=== PATIENT | male | born 1955 | race Caucasian/White ===

== ENCOUNTER 2017-09-22 21:09 | Emergency (ER) | payer BC, OTHER ==
[~2017-09-22] VITALS: Ht 162.6 cm; Wt 57.5 kg
[~2017-09-22 21:09] MED LIST: AMT10 PO; ASPI-319 PO; LISI5TAB3 PO; PRLSR20 PO; SILD100T PO
[2017-09-22 21:13] VITALS: TEMP 37; Ht 162.6 cm; Wt 57.5 kg
[2017-09-22] MEDS ORDERED: AMIT10TA6 PO (21:45)
[2017-09-22] MEDS ORDERED: LISI-729 PO (21:46)
[2017-09-22] MEDS ORDERED: FINA5TAB PO (21:48)
[2017-09-22] MEDS ORDERED: LIDOCAINE 1% BUFFERED INJ 20 ML VIAL ONE (21:59)
[2017-09-22] MEDS ORDERED: AMOXICIL/CLAVU 875MG HOME PACK PO ONE (22:15)
[2017-09-22] MEDS ORDERED: AMOX875T PO (22:20)
[2017-09-22 22:43] VITALS: BP 129/82; PULSE 76; O2SAT 97
--- NOTE | 2017-09-22 23:36 | EMERGENCY ROOM VISIT NOTE ---
ED Visit Note First contact with patient: 21:50 CHIEF COMPLAINT: [place] to finger HISTORY OF PRESENT ILLNESS: This 62-year-old patient presents to the emergency department with complaining of fishhook to right third finger he was unable to remove it that happened just prior to arrival. The bleeding has stopped. Denies weakness or numbness of the finger. The patient has full range of motion of the fingers. The patient rates the pain as mild and 2/10. The patient denies any other injuries. The patient's tetanus shot is up to date. REVIEW OF SYSTEMS: A 6 system review of systems was completed with positives and pertinent negatives listed in the HPI. ALLERGIES: Hydrocodone MEDICATIONS: Reviewed PMH: Hypertension, hyperlipidemia SOCIAL HISTORY: No drug use PHYSICAL EXAM: Vital Signs: Reviewed Nurse's notes, vital signs stable. GENERAL : Pleasant male, in no acute distress, well developed, well nourished. SKIN: There is a fishhook to the right third finger to the finger pad. There is minimal bleeding. No deep structures such as tendons, bones, or significant blood vessels are seen in the base of the wound. Extension and flexion of the finger is full and strong. Full range of motion of the wrist and other fingers. Capillary refill less than 2 seconds. Normal sensation to light and sharp touch. EMERGENCY DEPARTMENT COURSE: I examined the patient. Using sterile technique the wound was cleansed with Betadine. 2 ml of 1% buffered lidocaine was used to perform a digital block to anesthetize the patient. The area was sterilely draped. Once the patient was anesthetized, pliers were used to cut the fishhook and the fishhook was pushed forward and removed without difficulties. The wound was then irrigated. No deep structures were visualized in the base of the wound. The patient tolerated the procedure well. Hemostasis was achieved. The area was cleaned with sterile saline and dressed with bacitracin ointment and bandage. The patient was started on antibiotics. The patient was given back to the patient per his request. Patient was counseled on signs and symptoms of infection. The patient was discharged home in good condition. DIAGNOSIS: fishhook to right third finger DISCHARGE INSTRUCTIONS & TREATMENT: As below Problem List Medical Problems: (1) Hyperlipidemia Status: Chronic (2) Hypertension Status: Chronic Current/Historical Medications Scheduled Amitriptyline Hcl (Elavil), 10 MG PO HS Amoxicillin & Pot Clavulanate (Augmentin 875-125 mg), 1 TAB PO BID Aspirin Enteric Coated (Ecotrin Or Generic), 81 MG PO DAILY Finasteride (Proscar), 5 MG PO QPM Lisinopril (Zestril), 5 MG PO DAILY Omeprazole (Prilosec), 20 MG PO DAILY Scheduled PRN Sildenafil Citrate (Viagra), 100 MG PO UD PRN for NEEDED Allergies Coded Allergies: Oxycodone (Unverified Allergy, Severe, NAUSEA, 09/22/17) Hydrocodone (Unverified Adverse Reaction, Severe, VOMITING, 09/22/17) Vital Signs Date Time Temp Pulse Resp B/P (MAP) Pulse Ox O2 Delivery O2 Flow Rate FiO2 09/22/17 22:43 76 18 129/82 97 09/22/17 21:13 37.0 78 18 146/87 96 Room Air Medications Administered Medications (Trade) Dose Ordered Sig/Deep Route Start Time Stop Time Status Last Admin Dose Admin Lidocaine HCl (Buffered Lidocaine 1% Inj) 20 ml STK-MED ONCE .ROUTE 09/22/17 21:59 09/22/17 22:00 DC 09/22/17 22:35 20 ML Amoxicillin/ Clavulanate Potassium (Augmentin 875MG Home Pack) 1 homepack UD ONCE PO 09/22/17 22:15 09/22/17 22:16 DC 09/22/17 22:35 1 HOMEPACK Departure Information Impression Primary Impression: Fish hook injury of finger Dispostion Home / Self-Care Condition GOOD Prescriptions Amoxicillin & Pot Clavulanate (Augmentin 875-125 mg) 1 Tab Tab 1 TAB PO BID for 9 Days, #18 TAB Prov: Ashia Graf ., ABRIL 09/22/17 Forms WORK / SCHOOL INSTRUCTIONS, HOME CARE DOCUMENTATION FORM, IMPORTANT VISIT INFORMATION Patient Instructions My [facility], ED Puncture Wound Fish Hook Removed Additional Instructions Amoxicillin Clavulanate (Augmentin) 875mg: Take one pill twice daily for 10 days for your infection. All antibiotics can cause diarrhea. If this occurs and you feel worse or it does not resolve in 1-2 days follow up with your doctor or return to the Emergency Department as this could be signs of serious underlying problems. Any medication can cause an allergic reaction, stop the pills immediately and return to the ER for rash, hives, breathing difficulties, or swelling. Ibuprofen(Motrin, Advil) may be used for fever or pain. Use 600mg every six hours as needed. Take with food. Avoid using more than 2400mg in a 24 hour period. Do not use 2400mg per day for more than three consecutive days without physician direction. Prolonged inappropriate use can lead to stomach upset or ulcers. (AND/OR) Acetaminophen(Tylenol) may be used for fever or pain. Use 1000mg every six hours as needed. Avoid using more than 3000mg in a 24 hour period. Antibiotic ointment and bandage to the areas until healed. Rest and drink plenty of fluids. Continue current medications. Return to the ER for severe pain, persistent fevers, spreading redness, or any worsening of your condition. Follow up with your primary physician within 2-3 days for a recheck of the current condition.
== END 2017-09-22 22:45 | disposition home or self-care (01) ==
LOC: C.EDB 21:10 → C.EDD 22:45
DX: S60.452A Superficial foreign body of right middle finger, initial encounter (principal); W45.8XXA Other foreign body or object entering through skin, initial encounter; I10 Essential (primary) hypertension; E78.5 Hyperlipidemia, unspecified; Z79.82 Long term (current) use of aspirin; Z79.899 Other long term (current) drug therapy; Z88.5 Allergy status to narcotic agent

== ENCOUNTER 2020-07-04 05:06 | Observation (INO) ==
--- NOTE | 2020-06-23 14:15 | Communication Note ---
COVID screening: Per message from PAT chart check nurse, patient was returning from out of state travel (by motorcycle) 06/28 for a convention. No further details. Patient is vaccinated. Case was reviewed by Dr. Casanova- decision made to have patient do outpatient COVID testing as normally scheduled with recommendation for cepchaseid AM DOS.
--- NOTE | 2020-06-29 14:02 | Anesthesiology Consultation ---
Date of Service June 29, 2020 Assessment & Plan (1) Encounter for pre-operative examination: Chart Review Chart Review: Acceptable Risk for Surgery (pending Cepheid Covid test DOS ) and Patient NOT seen in Pre Admission Testing Cepheid Covid test ordered for DOS (see below) Per nursing assessment 06/29/20, pt traveled to [place] via motorcycle ("just to ride") from 06/20/20-06/27/20. Stayed in hotels and camped. Wears PPE in public. No known Covid positive contacts or Covid related symptoms. No known Covid infection in the past 90 days. Preop Covid test 06/29/20= results pending. Per communication note on 06/23/20 by Paola Canada PA-C= "Per message from PAT chart check nurse, patient was returning from out of state travel (by motorcycle) 06/28 for a convention. No further details. Patient is vaccinated. Case was reviewed by Dr. Casanova- decision made to have patient do outpatient COVID testing as normally scheduled with recommendation for cepheid AM DOS." Will leave to anesthesiologist discretion DOS if additional PPE and/or surgery time needed. History Surgery Operation Date: 07/04/20 07:15 Proposed Procedures p Transurethral Resection Prostate - Rios Freeman DO Height/Weight Height: 5 ft 3.75 in Weight: 54.431 kg Allergies Allergy/AdvReac Type Severity Reaction Status Date / Time hydrocodone AdvReac Severe VOMITING Verified 06/29/20 07:33 oxycodone AdvReac Severe NAUSEA Verified 06/29/20 07:33 Medications Home Medications Medication Instructions Recorded Confirmed Last Taken amitriptyline 10 mg tablet 10 mg PO HS 11/17/19 06/29/20 Unknown aspirin 81 mg tablet,delayed 81 mg PO QAM 11/17/19 06/29/20 Unknown release finasteride 5 mg tablet 5 mg PO QPM 11/17/19 06/29/20 Unknown omeprazole 20 mg capsule,delayed 20 mg PO QPM 11/17/19 06/29/20 Unknown release lisinopril 2.5 mg PO QAM 06/29/20 06/29/20 Unknown tadalafil [Cialis] 20 mg PO DAILY PRN 06/29/20 06/29/20 Unknown tamsulosin 0.4 mg PO HS 06/29/20 06/29/20 Unknown Past Medical History Medical History BPH w urinary obs/LUTS GERD (gastroesophageal reflux disease) History of prediabetes monitoring Hyperlipidemia pt denies Hypertension Kidney stones hx - no surgical intervention Osteoarthritis Past Family History Family History Other No family history of adverse response to anesthesia Past Surgical History Surgical History History of colonoscopy History of cystoscopy Social History Smoking Status: Never smoker Do You Dip or Chew Tobacco: No Hx Alcohol Use: No Hx Substance Use: No substance use type: does not use Lab Results Anesthesia Preop Results Results Anesthesia Widget: WBC 5.89 K/uL (4.8-10.8) 06/29/20 Hgb 13.1 g/dL (14.0-18.0) L 06/29/20 Hct 40.9 % (42-52) L 06/29/20 Plt 207 K/uL (130-400) 06/29/20 Na 140 mmol/L (136-145) 06/29/20 K 4.1 mmol/L (3.5-5.1) 06/29/20 Cl 106 mmol/L (98-107) 06/29/20 CO2 30 mmol/L (21-32) 06/29/20 BUN 21 mg/dl (7-18) H 06/29/20 Creat 0.88 mg/dl (0.6-1.4) 06/29/20 Glucose Level 126 mg/dl (70-99) H 06/29/20 Urine Color Yellow 06/29/20 Urine Appearance Clear (Clear) 06/29/20 Urine pH 7.0 (4.5-7.5) 06/29/20 Urine Specific [place] 1.015 (1.000-1.030) 06/29/20 Urine Protein Negative (Negative) 06/29/20 Urine Glucose (UA) Negative (Negative) 06/29/20 Urine Ketones Negative (Negative) 06/29/20 Urine Blood Trace-intact (Negative) H 06/29/20 Urine Nitrite Negative (Negative) 06/29/20 Urine Bilirubin Negative (Negative) 06/29/20 Urine Urobilinogen Negative (Negative) 06/29/20 Urine Leukocyte Esterase Negative (Negative) 06/29/20 Testing Electrocardiogram Date: 06/29/20 Findings: + NSR @ (78bpm) Normal EKG per cardio. Chest X-Ray Date: 06/29/20 Findings: + NAD
[2020-07-04] MEDS ORDERED: LACTATED RINGER'S 1,000 ML IV SCH (06:00)
[2020-07-04] MEDS ORDERED: ceFAZolin 2000MG 2,000 MG/15 ML SYR IV SCH ×2 (06:00→07:15)
[2020-07-04] MEDS ORDERED: LIDOCAINE 2% 2 ML VIAL/AMP(20MG/ML) INFIL ONE (06:32)
[2020-07-04] MEDS ORDERED: KETOROLAC 30 MG/ML VIAL ONE (06:32)
[2020-07-04] MEDS ORDERED: PROPOFOL IV EMULSION 10 MG/ML 20 ML VIAL IV ONE (06:32)
[2020-07-04] MEDS ORDERED: ONDANSETRON INJ 2 MG/ML 2 ML VIAL ONE (06:32)
[2020-07-04] MEDS ORDERED: fentaNYL citrate 100 MCG/2 ML VIAL ONE (06:32)
--- NOTE | 2020-07-04 07:02 | History & Physical Report ---
Date of Service July 04, 2020 Assessment & Plan (1) Hematuria, gross: (2) BPH w urinary obs/LUTS: Risks and benefits discussed at length for procedure. These include bleeding, infection, injury to surrounding tissues or organs, and risks associated with anesthesia. Patient states understanding and agrees to proceed. Will sign consent and proceed. Plan for TURP History of Present Illness Primary Care Provider: Farshad Sánchez DO Patient here for procedure. No changes in medical issues. No major changes in urinary issues. Continued issues and concerns. No change in pain or discomfort. No severe fevers or chills. No chest pain or shortness of breath. Risks and benefits discussed at length for procedure. These include bleeding, infection, injury to surrounding tissues or organs, and risks associated with anesthesia. Patient and/or family states understanding and agrees to proceed. Consent and supporting information completed. Allergies Allergy/AdvReac Type Severity Reaction Status Date / Time hydrocodone AdvReac Severe VOMITING Verified 07/04/20 05:33 oxycodone AdvReac Severe NAUSEA Verified 07/04/20 05:33 Home Medications Medication Instructions Recorded Confirmed Type amitriptyline 10 mg tablet 10 mg PO HS 11/17/19 07/04/20 History aspirin 81 mg tablet,delayed 81 mg PO QAM 11/17/19 07/04/20 History release finasteride 5 mg tablet 5 mg PO QPM 11/17/19 07/04/20 History omeprazole 20 mg capsule,delayed 20 mg PO QPM 11/17/19 07/04/20 History release lisinopril 2.5 mg PO QAM 06/29/20 07/04/20 History tadalafil [Cialis] 20 mg PO DAILY PRN 06/29/20 07/04/20 History tamsulosin 0.4 mg PO HS 06/29/20 07/04/20 History Past Med/Surg History Medical History BPH w urinary obs/LUTS GERD (gastroesophageal reflux disease) History of prediabetes monitoring Hyperlipidemia pt denies Hypertension Kidney stones hx - no surgical intervention Osteoarthritis Surgical History History of colonoscopy History of cystoscopy Family History Other No family history of adverse response to anesthesia Social History Smoking Status: Never smoker Second Hand Exposure: No; Do You Dip or Chew Tobacco: No; Tobacco Cessation Education Requested by Patient: No Hx Alcohol Use: No Hx Substance Use: No Preferred Language: Slovak Communication Ability: Effective Transportation Consultant Required: No Beliefs That Will Affect Care: None marital status: Current Living Situation: Spouse current occupational status: employed Other Information That Helps Us Care for You: No Feels Safe at Home: Yes Safety Concerns: Feels Safe At This Time Assistive Devices: Glasses Review of Systems All systems reviewed & are unremarkable except as noted in HPI & below Physical Exam Physical Exam: General: Alert/Arousable. No Acute illness. . HEENT: Inspection normal. Normal inspection of face. Normal inspection of neck. Psychologic: Normal affect/No change in mentation. Respiratory: No use of accessory muscles. No respiratory changes or exacerbation or changes with tachypnea or dyspnea. Cardiovascular: No tachycardia Skin: [place] and Dry. No new rashes or visible lesions. Abdomen: Normal inspection. No guarding. Results & Data ([facility]) Vital Signs (Past 12 Hours) Vital Signs Temp Pulse Resp BP Pulse Ox 07/04/20 05:49 36.4 C L 79 16 161/99 H 98 PG Care Time/CCT Total # of Minutes Spent Total Time Spent with Patient: Total time spent is greater than 50% in coordination of care (as documented) at patient's floor/unit and/or counseling patient: Coding Level of Care Code 93503 Initial Inpt Care Lvl 3 Diagnoses Hematuria, gross R31.0 BPH w urinary obs/LUTS N40.1; N13.8
[2020-07-04] MEDS ORDERED: oxyCODONE/ACETAMINOPHEN 5mg/325mg TAB PO PRN (07:06)
[2020-07-04] MEDS ORDERED: MoRPHine SULFATE 2 MG/ML CARP IV PRN (07:06)
[2020-07-04] MEDS ORDERED: BELLADONNA/OPIUM SUPP 60 MG SUPP PR PRN (07:06)
[2020-07-04] MEDS ORDERED: ONDANSETRON INJ 2 MG/ML 2 ML VIAL IV PRN ×2 (07:06→07:30)
[2020-07-04] MEDS ORDERED: PHENAZOPYRIDINE HCL 200 MG TAB PO PRN (07:06)
[2020-07-04] MEDS ORDERED: ePHEDrine sulfate 50 MG/ML AMP IV PRN (07:30)
[2020-07-04] MEDS ORDERED: ATROPINE SULFATE 0.1 MG/ML 10ML SYR IV PRN (07:30)
[2020-07-04] MEDS ORDERED: LABETALOL HCL IV 5 MG/ML 20ML IV PRN (07:30)
[2020-07-04] MEDS ORDERED: NALOXONE HCL 0.4 MG/1 ML VIAL/CARP IV PRN (07:30)
[2020-07-04] MEDS ORDERED: FLUMAZENIL 0.1 MG/1 ML 10 ML VIAL IV PRN (07:30)
[2020-07-04] MEDS ORDERED: PROMETHAZINE HCL 12.5 MG in SODIUM CHLORIDE 0.9% 50 ML IV PRN (07:30)
[2020-07-04] MEDS ORDERED: BELLADONNA/OPIUM SUPP 60 MG SUPP PR ONE (08:16)
--- NOTE | 2020-07-04 08:25 | Operative Report ---
PG Post Operative Report Pre & Post Diagnosis Operation Date: 07/04/20 07:15 Pre-Op Diagnosis: Hematuna Gross, Benign prostate hypertrophy With Urinary OBS/ LUTS Post-Op Diagnosis: Hematuna Gross, Benign prostate hypertrophy With Urinary OBS/ LUTS I identified the patient and participated in the time-out.: Yes Procedure Operation Date: 07/04/20 07:15 Actual Procedures p Transurethral Resection of Prostate(Not Applicable) - Rios Freeman DO Surgeon Rios Freeman, II, DO [place] [employer] None Estimated Blood Loss 10 Findings Consistent with Post-Op Diagnosis Large Prostate with obstruction. Specimens Prostate adenoma. Drains 22Fr [address] Catheter Anesthesia Type General Complications none Disposition Disposition: Recovery Room Indications Patient with obstruction due to prostate enlargement. Risks and benefits discussed at length. Description of Procedure Patient was consented and brought back to the operating room. Patient was placed under anesthesia in the supine position and moved to the dorsal lithotomy position. Patient was prepped and draped in the regular sterile fashion. A time out was completed. A 30degree Cystoscope was placed into the bladder and the entire bladder was examined. The UO's were identified as well as the bladder neck, trigone, dome, and the other important landmarks. The prostatic urethra and large lobes/adenoma was assessed and the veru and bladder neck identified and area/size was assessed. The resection scope was placed and the fine bipolar loop was selected. Starting at the 5 and 7 o'clock positions, a channel was created from bladder neck to the veru. With the channel formed, resection then started at the 11 o'clock and 1 o'clock position and was taken down to the 6 o'clock. A large amount of tissue was resected. Further tissue at the anterior portion was resected. Further tissue at the bladder neck and proximal to the veru was also resected. The Specimen was removed and sent for analysis. The resection bed and any bleeding areas were fulgurated/cauterized and the entire area inspected. All bleeding was controlled. The bladder was inspected a final time. The bladder was emptied and irrigated. All specimen and debris was removed. The scope was removed with the bladder partially full. A catheter was placed and balloon elevated. This was easily irrigated. A belladonna and opium soppository was placed. The patient was cleaned, aroused from anesthesia, and transferred to the pacu in stable condition having serena ated the procedure well with no complications. I was present and participated in all aspects of the procedure. The patient will be monitored in the PACU until transferred. I attest to the content of the Intraoperative Record and any orders documented therein. Any exceptions are noted below.
[2020-07-04] MEDS: fentaNYL citrate 100 MCG/2 ML VIAL IV PRN ×4 (08:47→09:02)
--- NOTE | 2020-07-04 09:15 | Anesthesiology Progress Note ---
Date of Service July 04, 2020 Anesthesia Post Procedure Vital Signs Vital Signs: Temp Pulse Pulse Resp BP BP Pulse Ox 07/04/20 09:05 61 12 109/69 98 07/04/20 08:55 63 12 112/75 96 07/04/20 08:45 69 12 120/77 97 07/04/20 08:36 36.0 C L 70 12 122/77 100 07/04/20 05:49 36.4 C L 79 16 161/99 H 98 Pain Intensity Penis: Pain Intensity: 3 Transfer of Care Handoff Completed per policy Notes Mental Status: alert / awake / arousable Patient Amnestic to Procedure: Yes Nausea / Vomiting: adequately controlled Pain: adequately controlled Airway Patency, RR, SpO2: stable & adequate BP & HR: stable & adequate Hydration State: stable & adequate Anesthetic Complications: no major complications apparent
[2020-07-04 10:14] LABS: Basophils # (auto) 0.01 K/uL (0-0.2); Basophils % (auto) 0.2 %; Eosinophils # (auto) 0.05 K/uL (0-0.5); Eosinophils % (auto) 1.1 %; Hematocrit (blood only) 34.9 % (42-52); Hemoglobin 11.1 g/dL (14.0-18.0); Lymphocytes # (auto) 1.35 K/uL (1.2-3.4); Lymphocytes % (auto) 28.8 %; Mean Corpuscular Hemoglobin 20.6 pg (25-34); Mean Corpuscular Hgb Conc 31.8 g/dL (32-36); Mean Corpuscular Volume 64.6 fL (80-100); Mean Platelet Volume 10.4 fL (7.4-10.4); Monocytes % (auto) 6.4 %; Neutrophils # (auto) 2.97 K/uL (1.4-6.5); Neutrophils % (auto) 63.5 %; Platelet Count 154 K/uL (130-400); RDW Coefficient of Variation 15.9 % (11.5-14.5); RDW Standard Deviation 37.3 fL (36.4-46.3); White Blood Count 4.68 K/uL (4.8-10.8)
[2020-07-04 10:33] LABS: BUN Creatinine Ratio 26.1 (10-20); Calcium 7.7 mg/dl (8.5-10.1); Creatinine Clr Calc Pharmacy 72.8 ml/min; Est GFR (African American) 108.3 ml/min; Est GFR (Non-African American) 93.4 ml/min; Potassium 4.6 mmol/L (3.5-5.1)
[2020-07-04 10:46] LABS: Microcytosis Present; Ovalocytes 1+
[2020-07-04] MEDS: DOCUSATE SODIUM 100 MG CAP PO SCH ×2 (11:23→21:06)
[2020-07-04] MEDS: ASPIRIN 81 MG ECTAB PO SCH (11:23)
[2020-07-04] MEDS: SODIUM CHLORIDE 0.9% 1000ML 1,000 ML IV SCH (14:56)
[2020-07-04] MEDS: ceFAZolin 2000MG 2,000 MG/15 ML SYR IV SCH ×2 (15:03→22:48)
[2020-07-04] MEDS ORDERED: PANTOprazole 40 MG TAB PO SCH (21:00)
[2020-07-04] MEDS ORDERED: TAMSULOSIN HCL 0.4 MG CAP PO SCH (21:00)
[2020-07-04] MEDS ORDERED: AMITRIPTYLINE HCL 10 MG TAB PO SCH (21:00)
[2020-07-04] MEDS ORDERED: FINASTERIDE 5 MG TAB PO SCH (21:00)
[2020-07-05] MEDS: SODIUM CHLORIDE 0.9% 1000ML 1,000 ML IV SCH (03:10)
[2020-07-05] MEDS: ceFAZolin 2000MG 2,000 MG/15 ML SYR IV SCH (06:18)
--- NOTE | 2020-07-05 07:48 | Urology Progress Note ---
Date of Service July 05, 2020 Assessment & Plan (1) Hematuria, gross: (2) BPH w urinary obs/LUTS: 65yo M admitted s/p TURP - Postop day #1 status post Transurethral Resection of Prostate with Dr. Freeman - Patient doing well post procedure - Afebrile, VSS. - Will check a CBC and BMP this morning. - Romero catheter intact and draining with hematuria, CBI clamped this morning - Continue to monitor - Will plan to reassess this afternoon - Likely home later today if he continues to progress - Pt reassessed this afternoon - Patient feeling well, progressing as expected. - Tolerating diet, no nausea or vomiting - Romero catheter draining pink tinged urine - Minimal pain - Eager to go home - Expected clinical course reviewed with patient, he verbalized understanding. All questions answered. - Will arrange postoperative follow-up appointments - Stable for discharge, home with romero catheter Admission and Anticipated Discharge Date Admission Date: July 04, 2020 Subjective Pt examined at bedside this AM. Awake, resting in bed on arrival. Denies any pain or discomfort at this time. Romero catheter intact, draining with hematuria - CBI clamped this morning He does note some bloody drainage at catheter insertion site this morning. Denies fevers or chills. Tolerating diet, no nausea or vomiting. Chart review: Afebrile, VSS. Review of Systems Constitutional: as per Subjective / HPI Gastrointestinal: as per Subjective / HPI Genitourinary: + as per Subjective / HPI Physical Exam Constitutional: well developed and well nourished; no acute distress and not ill appearing Respiratory: normal respiratory effort and able to speak in complete sentences; no labored breathing and no audible wheezes Gastrointestinal (Abdomen): Percussion/Palpation: abdomen soft; abdomen nontender and no guarding Musculoskeletal: Head/Neck/Chest: normocephalic Neurologic: awake Psychiatric: A+Ox3, euthymic affect Genitourinary: Romero catheter intact, draining with hematuria Results & Data ([facility]) Vital Signs (Past 12 Hours) Vital Signs Temp Pulse Resp BP BP Pulse Ox 07/05/20 06:59 36.6 C 66 16 127/76 96 07/05/20 04:03 36.5 C 70 16 130/78 96 07/04/20 22:39 36.6 C 62 18 138/81 97 PG Care Time/CCT Total # of Minutes Spent Total Time Spent with Patient: Total time spent is greater than 50% in coordination of care (as documented) at patient's floor/unit and/or counseling patient: Coding Level of Care Code 67392 Subseq Hosp Care Lvl 2 Diagnoses Hematuria, gross R31.0 BPH w urinary obs/LUTS N40.1; N13.8
[2020-07-05] MEDS: DOCUSATE SODIUM 100 MG CAP PO SCH (08:23)
[2020-07-05] MEDS: ASPIRIN 81 MG ECTAB PO SCH (08:23)
[2020-07-05 09:37] LABS: Basophils # (auto) 0.01 K/uL (0-0.2); Basophils % (auto) 0.1 %; Eosinophils # (auto) 0.08 K/uL (0-0.5); Eosinophils % (auto) 1.2 %; Hemoglobin 11.2 g/dL (14.0-18.0); Immature Granulocytes # (auto) 0.01 K/uL (0.00-0.02); Immature Granulocytes % (auto) 0.1 %; Lymphocytes # (auto) 1.18 K/uL (1.2-3.4); Mean Corpuscular Hemoglobin 20.3 pg (25-34); Mean Corpuscular Volume 63.4 fL (80-100); Monocytes # (auto) 0.48 K/uL (0.11-0.59); Monocytes % (auto) 6.9 %; Neutrophils # (auto) 5.18 K/uL (1.4-6.5); Neutrophils % (auto) 74.7 %; Platelet Count 160 K/uL (130-400); RDW Coefficient of Variation 15.9 % (11.5-14.5); RDW Standard Deviation 36.6 fL (36.4-46.3); Red Blood Count 5.52 M/uL (4.7-6.1); White Blood Count 6.94 K/uL (4.8-10.8)
[2020-07-05 09:57] LABS: Microcytosis Present; Ovalocytes 1+; Tear Drop Cells 1+
[2020-07-05 10:04] LABS: BUN Creatinine Ratio 11.3 (10-20); Calcium 8.1 mg/dl (8.5-10.1); Est GFR (Non-African American) 89.7 ml/min; Potassium 3.7 mmol/L (3.5-5.1)
[2020-07-05] MEDS ORDERED: lisinopril 2.5 MG TAB PO SCH (11:25)
--- NOTE | 2020-07-06 09:24 | Discharge Summary ---
Date of Service July 06, 2020 Admission HPI Per Admitting Provider Patient here for procedure. No changes in medical issues. No major changes in urinary issues. Continued issues and concerns. No change in pain or discomfort. No severe fevers or chills. No chest pain or shortness of breath. Risks and benefits discussed at length for procedure. These include bleeding, infection, injury to surrounding tissues or organs, and risks associated with anesthesia. Patient and/or family states understanding and agrees to proceed. Consent and supporting information completed. Admission Exam Per Admitting Provider See H&P Principal Diagnosis BPH with obstruction Discharge Exam General: Alert in no acute distress. HEENT: Normocephalic Atraumatic. Inspection normal. Psychologic: Normal affect. Skin: [place] and Dry. No rashes or visible lesions. Abdomen: Soft Non-distended. No rebound or guarding. Discharge Data Allergies Allergy/AdvReac Type Severity Reaction Status Date / Time hydrocodone AdvReac Severe VOMITING Verified 07/04/20 05:33 oxycodone AdvReac Severe NAUSEA Verified 07/04/20 05:33 Procedures Performed Operation Date: 07/04/20 07:15 Actual Procedures p Transurethral Resection Prostate(Not Applicable) - Rios Freeman, DO Hospital Course (1) Hematuria, gross: (2) BPH w urinary obs/LUTS: 65yo M admitted s/p TURP - Postop day #1 status post Transurethral Resection of Prostate with Dr. Freeman - Patient doing well post procedure - Afebrile, VSS. - Will check a CBC and BMP this morning. - Romero catheter intact and draining with hematuria, CBI clamped this morning - Continue to monitor - Will plan to reassess this afternoon - Likely home later today if he continues to progress - Pt reassessed this afternoon - Patient feeling well, progressing as expected. - Tolerating diet, no nausea or vomiting - Romero catheter draining pink tinged urine - Minimal pain - Eager to go home - Expected clinical course reviewed with patient, he verbalized understanding. All questions answered. - Will arrange postoperative follow-up appointments - Stable for discharge, home with romero catheter Total Time Total Time Spent Total Time Spent (In Minutes): 10 minutes Total Time Includes: Examination of the Patient, Discharge Planning, Medication Reconciliation and Communication With Other Providers Discharge Plan Discharge Items Patient Disposition: Home - Self-Care Reason For Visit: Hematuna Gross, BPH With Urinary OBS/ LUTS Discharge Diagnosis: Hematuna Gross, BPH With Urinary OBS/ LUTS Activity: Per Instructions section Lifting: No more than 25 pounds Bathing Comment: No tub baths or soaks. OK to shower. Sexual Activity: Wait until after follow-up appointment Exercise/Sports: Wait until after follow-up appointment Driving/Machine Use: Do not drive while taking prescription pain medication. Non-emergency contact: Surgeon and Urologist Call non-emergency contact if: your pain is not controlled, you have a fever and your temperature is above 101 Follow-up/Referrals: Farshad Sánchez DO [Primary Care Provider] - Diet: Regular Addtl Attending Provider Instructions: Please take all medications as prescribed and keep all follow-ups as scheduled. Please call our office at [phone] with any questions, concerns or need to reschedule appointments for any reason. We are happy to assist you. The urology office will call you with your follow-up appointment time and date. Tips for your recovery at home: Dont be alarmed by brownish or reddish blood or clots in your urine. This is a result of the procedure. This may occur off and on for weeks to months after the procedure but should continue to improve. Drink plenty of fluids during the day (enough to keep your urine very light colored). This will help keep a healthy flow of urine. Do not lift >25 lbs until your followup Avoid constipation. Please use a stool softener (Colace) for the first two weeks after your procedure Be sure to finish the antibiotics as prescribed. If you go home with a catheter, please wash tubing where it enters your body twice daily with mild soap (Dove or Dial). Once your catheter is removed, expect some blood in your urine and some burning when you urinate. You should have an appointment to have this removed, if you do not please call our office to arrange. When to call [facility] at [phone]: Your urine contains heavy blood clots You are constantly leaking urine Fever of 101F or higher, chills, nausea, or vomiting Your pain is not relieved with medication Pending Studies at Discharge: Yes Stand-Alone Forms: My [facility] [employer], Smoking Cessation Medications and DC Order Prescriptions: New oxycodone-acetaminophen [Percocet] 5-325 mg tablet 1 tab PO Q8H PRN (Reason: pain) Qty: 7 RF: 0 docusate sodium [Colace] 100 mg capsule 100 mg PO BID Qty: 60 RF: 0 cephalexin 500 mg capsule 500 mg PO BID 5 Days Qty: 10 RF: 0 Continued amitriptyline 10 mg tablet 10 mg PO HS RF: 0 aspirin 81 mg tablet,delayed release (DR/EC) 81 mg PO QAM RF: 0 finasteride 5 mg tablet 5 mg PO QPM RF: 0 omeprazole 20 mg capsule,delayed release(DR/EC) 20 mg PO QPM RF: 0 tamsulosin 0.4 mg Capsule 0.4 mg PO HS RF: 0 lisinopril 2.5 mg Tablet 2.5 mg PO QAM RF: 0 tadalafil [Cialis] 20 mg Tablet 20 mg PO DAILY PRN (Reason: Sexual Activity) RF: 0 Discharge Orders: Discharge Order (Routine); Ordered 07/05/20 Ordered By: Dhara Randall/Other Patient Handouts: Transurethral Resection of the ..., Discharge Instructions Caring for ... Admission Data Admit Date/Time: 07/04/20 07:06 Attending Provider: Rios Freeman Admit Provider: Rios Freeman Primary Care Provider: Farshad Sánchez Other Interventions: Discharge Summary Assessment (RN) Last Done: 07/05/20 08:47 Coding Level of Care Code D/C Day Management <30 mins Diagnoses Hematuria, gross R31.0 BPH w urinary obs/LUTS N40.1; N13.8
== END 2020-07-05 13:11 | disposition home or self-care (01) ==
LOC: 3W 05:06 → ASU 05:06